=== PATIENT | female | born 1990 | race Caucasian/White ===

== ENCOUNTER → 2023-12-04 | Outpatient (CLI) | payer BC, SELFPAY ==
[2023-12-07 13:08] LABS: QNTFERON TB Mitogen Value > 10.00 IU/mL (.); QNTFERON TB Nil Value 0 IU/mL (.); QNTFERON TB1+ Ag Value 0.01 IU/mL (.); QNTFERON TB2+ Ag Value 0.02 IU/mL (.); QNTIFERON TB Positive Criteria Negative (Negative)
== END | disposition home or self-care (01) ==
PROVIDERS: Referring Provider Physician Assistant; Visit Provider Physician Assistant
DX: L40.0 Psoriasis vulgaris (principal)
CPT/HCPCS: 36415; 86480

== ENCOUNTER → 2024-12-09 | Outpatient (CLI) | payer OTHER, SELFPAY ==
--- OUTSIDE RECORDS SUMMARY | 2024-12-09 09:26 | XMS RPT_ITS | CCD ---
Author Organization [facility] Care Team Providers Care [employer] Name Role Phone Meron Lucero Referring Unavailable Meron Lucero Attending Unavailable Care Physician, No Primary Primary Care Unava ilable Problems Problem Classification Problem Date Documented Da te Episodic/Chronic Other inflammatory condition of skin (1 source) Psoriasis vulgaris; Translations: [Psoriasis vulgaris] Onset: 12-25-2023 Chronic Results Test Name Value Interpretation Reference Range Facility CBC (H/H, RBC, INDICES, WBC, PLT)on 07-04-2024 Erythrocyte distribution width (RBC) [Ratio] 13.5 % Normal 11.0-15.0 [facility] Comment on above: Performed By: #### 1 023, 7599, 175 #### [facility] [place] [address] Rougher Helper: Doni Tejada MD Hematocrit (Bld) [Volume fraction] 37.3 % Normal 35.0-45.0 [facility] Comment on above: Performed By: #### 1 023, 7599, 175 #### [facility] [place] [address] Rougher Helper: Doni Tejada MD Hemoglobin (Bld) [Mass/Vol] 12.0 g/dL Normal 11.7-15.5 [facility] Comment on above: Performed By: #### 1 0231, 7599, 175 #### [facility] [place] [address] Rougher Helper: Doni Tejada MD MCH (RBC) [Entitic mass] 25.9 pg Low 27.0-33.0 [facility] Comment on above: Performed By: #### 1 0231, 7599, 175 #### [facility] of [address], [address] [place] [address] Rougher Helper: Doni Tejada MD MCHC (RBC) [Mass/Vol] 32.2 g/dL Normal 32.0-36.0 [facility] Comment on above: Result Comment: For adults, a slight decrease in the calculated MCHC value (in the range of 30 to 32 g/dL) is most likely not clinically significant; however, it should be interpreted with caution in correlation with other red cell parameters and the patient's clinical condition. Performed By: #### 1 230, 7599, 1758 #### [facility] of [place] [address] Rougher Helper: Doni Tejada MD MCV (RBC) [Entitic vol] 80.4 fL Normal 80.0-100.0 [facility] Comment on above: Performed By: #### 1 230, 7599, 1758 #### [facility] of [place] [address] Rougher Helper: Doni Tejada MD Platelet mean volume (Bld) [Entitic vol] 10.9 fL Normal 7.5-12.5 [facility] Comment on above: Performed By: #### 1 230, 7599, 1758 #### [facility] of [place] [address] Rougher Helper: Doni Tejada MD Platelets (Bld) [#/Vol] 345 10*3/uL Normal 140-400 [facility] Comment on above: Performed By: #### 1 230, 7599, 1758 #### [facility] of [place] [address] Rougher Helper: Doni Tejada MD RBC (Bld) [#/Vol] 4.64 10*6/uL Normal 3.80-5.10 [facility] Comment on above: Performed By: #### 1 230, 7599, 1758 #### [facility] of [place] [address] Rougher Helper: Doni Tejada MD WBC (Bld) [#/Vol] 5.3 10*3/uL Normal 3.8-10.8 [facility] Comment on above: Performed By: #### 1 0231, 7599, 175 #### [facility] of [address], [address] [place] [address] Rougher Helper: Doni Tejada MD COMPREHENSIVE METABOLIC PANE [facility] 07-04-2024 Albumin [Mass/Vol] 4.5 g/dL Normal 3.6-5.1 [facility] Comment on above: Performed By: #### 1 0231, 7599, 175 #### [facility] of [address], [address] [place] [address] Rougher Helper: Doni Tejada MD Albumin/Globulin [Mass ratio] 1.9 {ratio} Normal 1.0-2.5 [facility] Comment on above: Performed By: #### 1 023, 7599, 175 #### [facility] of [address], [address] [place] [address] Rougher Helper: Doni Tejada MD ALP [Catalytic activity/Vol] 47 U/L Normal 31-125 [facility] Comment on above: Performed By: #### 1 023, 7599, 175 #### [facility] of [place] [address] Rougher Helper: Doni Tejada MD ALT [Catalytic activity/Vol] 8 U/L Normal 6-29 [facility] Comment on above: Performed By: #### 1 023, 7599, 175 #### [facility] of [address], [address] [place] [address] Rougher Helper: Doni Tejada MD AST [Catalytic activity/Vol] 13 U/L Normal 10-30 [facility] Comment on above: Performed By: #### 1 023, 7599, 175 #### [facility] of [place] [address] Rougher Helper: Doni Tejada MD Bilirubin [Mass/Vol] 0.5 mg/dL Normal 0.2-1.2 [facility] Comment on above: Performed By: #### 1 023, 7599, 175 #### [facility] [place] [address] Rougher Helper: Doni Tejada MD BUN/CREATININE RATIO SEE NOTE: Normal 6-22 [facility] Comment on above: Result Comment: Not Reported: BUN and Creatinine are within reference range. Performed By: #### 1 023, 7599, 175 #### [facility] [place] [address] Rougher Helper: Doni Tejada MD Calcium [Mass/Vol] 9.3 mg/dL Normal 8.6-10.2 [facility] Comment on above: Performed By: #### 1 023, 7599, 175 #### [facility] [place] [address] Rougher Helper: Doni Tejada MD Chloride [Moles/Vol] 102 mmol/L Normal 98-110 [facility] Comment on above: Performed By: #### 1 023, 7599, 175 #### [facility] [place] [address] Rougher Helper: Doni Tejada MD CO2 [Moles/Vol] 28 mmol/L Normal 20-32 [facility] Comment on above: Performed By: #### 1 023, 7599, 175 #### [facility] [place] [address] Rougher Helper: Doni Tejada MD Creatinine [Mass/Vol] 0.77 mg/dL Normal 0.50-0.97 [facility] Comment on above: Performed By: #### 1 023, 7599, 175 #### [facility] [place] [address] Rougher Helper: Doni Tejada MD GFR/1.73 sq M.predicted among non-blacks MDRD (S/P/Bld) [Vol rate/Area] 106 mL/min/{1.73_m2} Normal > OR = 60 [facility] Comment on above: Performed By: #### 1 023, 7599, 175 #### [facility] [place] [address] Rougher Helper: Doni Tejada MD Globulin (S) [Mass/Vol] 2.4 g/dL Normal 1.9-3.7 [facility] Comment on above: Performed By: #### 1 023, 7599, 175 #### [facility] [place] [address] Rougher Helper: Doni Tejada MD Glucose [Mass/Vol] 85 mg/dL Normal 65-99 [facility] Comment on above: Result Comment: Fasting reference interval Performed By: #### 1 230, 7599, 175 #### [facility] [place] [address] Rougher Helper: Doni Tejada MD Potassium [Moles/Vol] 4.6 mmol/L Normal 3.5-5.3 [facility] Comment on above: Performed By: #### 1 023, 7599, 175 #### [facility] [place] [address] Rougher Helper: Doni Tejada MD Protein [Mass/Vol] 6.9 g/dL Normal 6.1-8.1 [facility] Comment on above: Performed By: #### 1 230, 7599, 175 #### [facility] [place] [address] Rougher Helper: Doni Tejada MD Sodium [Moles/Vol] 137 mmol/L Normal 135-146 [facility] Comment on above: Performed By: #### 1 023, 7599, 175 #### [facility] of [place] [address] Rougher Helper: Doni Tejada MD Urea nitrogen [Mass/Vol] 13 mg/dL Normal 7-25 [facility] Comment on above: Performed By: #### 1 023, 7599, 175 #### [facility] [address], [address] [place] [address] Rougher Helper: Doni Tejada MD LIPID PANEL, [facility] [place] 06-15 Cholesterol [Mass/Vol] 255 mg/dL High <200 [facility] Comment on above: Order Comment: 0; 0; 0 Performed By: #### 1 0231, 7599, 1759 #### [facility] [address], [address] [place] [address] Rougher Helper: Doni Tejada MD Cholesterol in HDL [Mass/Vol] 50 mg/dL Normal > OR = 50 [facility] Comment on above: Order Comment: 0; 0; 0 Performed By: #### 1 023, 7599, 1759 #### [facility] [address], [address] [place] [address] Rougher Helper: Doni Tejada MD Cholesterol in LDL [Mass/Vol] 183 mg/dL High [facility] Comment on above: Order Comment: 0; 0; 0 Result Comment: Refe rence range: <100 Desirable range <100 mg/dL for primary prevention; <70 mg/dL for patients with CHD or diabetic patients with > or = 2 CHD risk factors. LDL-C is now calculated using the Delbert-Derek calculation, which is a validated novel method providing better accuracy than the Friedewald equation in the estimation of LDL-C. Delbert WOLFF et al. LISSY. 2013;310(19): 6803-9749 (http://education.Diomics.Affectv/faq/RRA232) Performed By: #### 1 0231, 7599, 175 #### [facility] [address], [address] [place] [address] Rougher Helper: Doni Tejada MD Cholesterol.total/ Cholesterol in HDL [Mass ratio] 5.1 {ratio} High <5.0 [facility] Comment on above: Order Comment: 0; 0; 0 Performed By: #### 1 0231, 0, 1759 #### [facility] [address], [address] [place] [address] Rougher Helper: Doni Tejada MD NON HDL CHOLESTEROL 205 mg/dL (calc) High <130 [facility] Comment on above: Order Comment: 0; 0; 0 Result Comment: For patients with diabetes plus 1 major ASCVD risk factor, treating to a non-HDL-C goal of <100 mg/dL (LDL-C of <70 mg/dL) is considered a therapeutic option. Performed By: #### 1 0231, 7600, 1759 #### [facility] [address], [address] [place] [address] Rougher Helper: Doni Tejada MD Triglyceride [Mass/Vol] 98 mg/dL Normal <150 [facility] Comment on above: Order Comment: 0; 0; 0 Performed By: #### 1 0231, 7600, 1759 #### [facility] [address], [address] [place] [address] Rougher Helper: Doni Tejada MD Quantiferon TB-Gold+on 12-06 QFT MITOGEN [place] > 10.00 Normal . [facility] Comment on above: Performed By: #### L 3400.8000 #### [facility] [address] [place], [place], [id number] QFT NIL VALUE 0 IU/mL Normal . [facility] Comment on above: Performed By: #### L 3400.8000 #### [facility] [address] [place], [place], [id number] QFT TB GOLD+ Comment Normal . [facility] Comment on above: Result Comment: Jonny tiFERON-TB Gold Plus is a qualitative indirect test for M tuberculosis infection (including disease) and is intended for use in conjunction with risk assessment, radiography, and other medical and diagnostic evaluations. The QuantiFERON-TB Gold Plus result is determined by subtracting the Nil value from either TB antigen (Ag) value. The Mitogen tube serves as a control for the test. Performed By: #### L 3400.8000 #### [facility] [address] [place], [place], [id number] QFT TB POS CRIT Negative Normal Negative [facility] Comment on above: Result Comment: No r esponse to M tuberculosis antigens detected. Infection with M tuberculosis is unlikely, but high risk individuals should be considered for additional testing (ATS/IDSA/CDC Clinical Practice Guidelines, 2017). The reference range is an Antigen minus Nil result of <0.35 IU/mL. The specimen received for QuantiFERON testing was incubated by the ordering institution. Specific procedures outlined in our Directory of Services and in the package insert for the QuantiFERON Gold (In Tube) test must be followed to enable for proper stimulation of cells for the production of interferon gamma. Chemiluminescence immunoassay methodology Performed at: [facility] [id number] [place] Hand: Murphy Lemus PhD, Phone: [phone] Performed By: #### L 3400.8000 #### [facility] [address] [place], [address] QFT TB1+ AG [place] 0.01 IU/mL Normal . [facility] Comment on above: Performed By: #### L 3400.8000 #### [facility] [address] [place], [address] QFT TB2+ AG [place] 0.02 IU/mL Normal . [facility] Comment on above: Performed By: #### L 3400.8000 #### [facility] [address] [place], [address] Encounters Encounter Date Encounter Type Care Provider Facility Start: 12-04-2023 End: 12-04-2023 ambulatory Meron JOHNSON Facility:[facility] Payers Date Payer Category Payer Self-pay 2023 Unknown [id number] Unknown [id number] Summary Purpose Family History No Family History Records FoundNo Family History Records Found Advance Directives No Advanced Directives Records FoundNo Advanced Directives Records Found Additional Source Comments INFORMATION SOURCE (unrecogn ized section and content) DATE CREATED AUTHOR 12/26/2023 [facility] DATE CREATED AUTHOR AUTHOR'S DAT BRANNON 07/06/2024 [facility] FOR RECORDS PERTAINING TO PATIENTS WHO ARE OR HAVE BEEN ENROLLED IN A CHEMICAL DEPENDENCY/SUBSTANCEABUSE PROGRAM, SOME INFORMATION MAY BE OMITTED. This clinical summary was aggregated from multiple sources. Caution should be exercised in using it in the provision of clinical care. This summary normalizes information from multiple sources, and as a consequence, information in this document may materially change the coding, format and clinical context of patient data. In addition, data may be omitted in some cases. CLINICAL DECISIONS SHOULD BE BASED ON THE PRIMARY CLINICAL RECORDS. [facility] [place] [facility]. provides no warranty or guarantee of the accuracy or completeness of information in this document.
[2024-12-16 10:08] LABS: QNTFERON TB Mitogen Value > 10.00 IU/mL (.); QNTFERON TB Nil Value 0.03 IU/mL (.); QNTFERON TB1+ Ag Value 0.04 IU/mL (.); QNTFERON TB2+ Ag Value 0.03 IU/mL (.); QNTIFERON TB Positive Criteria Negative (Negative)
== END | disposition home or self-care (01) ==
LOC: MTLAB 08:28
PROVIDERS: Referring Provider Physician Assistant; Visit Provider Physician Assistant
DX: L40.0 Psoriasis vulgaris (principal)
CPT/HCPCS: 36415; 86480